=== PATIENT | male | born 1985 | race African-American/Black ===

== ENCOUNTER 2019-03-04 17:12 | Emergency (ER) | payer SELFPAY ==
[2019-03-04 17:17] VITALS: BP 119/76; PULSE 55; TEMP 98; BMI 34.4
--- NOTE | 2019-03-04 17:32 | PDOC ---
History of Present Illness - General Chief Complaint: Back Pain Stated Complaint: BACK PAIN Time Seen by Provider: 03/04/19 17:21 - History of Present Illness Initial Comments: 03/04/19 17:31 33-year-old male without comorbidities presents for lower back pain with posterior lateral left leg radicular symptoms 3 days Past History - Past Medical History Allergies/Adverse Reactions: Allergies Allergy/AdvReac Type Severity Reaction Status Date / Time No Known Allergies Allergy Verified 03/04/19 17:17 Home Medications: Ambulatory Orders Cyclobenzaprine HCl [Flexeril 10 mg] 10 mg PO HS PRN #10 tablet 03/04/19 Methylprednisolone [Medrol Dose Osiel] 4 mg PO ASDIR #21 tablet 03/04/19 COPD: No - Suicide/Smoking/Psychosocial Hx Smoking History: Never smoked Have you smoked in the past 12 months: No Information on smoking cessation initiated: No Hx Alcohol Use: No Drug/Substance Use Hx: No Review of Systems - Review of Systems Constitutional: No: Fever : No: Incontinence Musculoskeletal: Yes: Back Pain *Physical Exam - Vital Signs Last Vital Signs Temp Pulse Resp BP Pulse Ox 98 F 55 L 17 119/76 100 03/04/19 17:15 03/04/19 17:15 03/04/19 17:15 03/04/19 17:15 03/04/19 17:15 - Physical Exam Comments: 03/04/19 17:30 Lumbar spine skin color and temperature are normal. There is decreased range of motion. 5 out of 5 strength in bilateral lower extremities.Straight leg raise test is negative bilaterally. Thighs and calves are soft and nontender. There are no gross sensory motor deficits. Neurovascularly intact. Medical Decision Making - Medical Decision Making 03/04/19 17:30 Lumbar radiculopathy without gross sensory motor deficits Medrol Dosepak muscle relaxers follow-up with spine surgery *DC/Admit/Observation/Transfer Diagnosis at time of Disposition: Lumbar radiculopathy - Discharge Dispostion Disposition: HOME Condition at time of disposition: Stable Decision to Admit order: No - Prescriptions Prescriptions: Cyclobenzaprine HCl [Flexeril 10 mg] 10 mg PO HS PRN #10 tablet PRN Reason: Muscle Spasms Methylprednisolone [Medrol Dose Osiel] 4 mg PO ASDIR #21 tablet - Referrals Referrals: Nathaniel Martinez MD, [facility] [Staff Physician] - - Patient Instructions Printed Discharge Instructions: Lumbar Radiculopathy, DI for Lumbar Radiculopathy Additional Instructions: Please take the steroid pack and muscle relaxer as directed. Return to the emergency room for worsening symptoms. Follow-up with neurosurgery in 1-2 days without fail for further evaluation and treatment options. - Post Discharge Activity
== END 2019-03-04 17:44 | disposition home or self-care (01) ==
LOC: JERFT 17:12
DX: M54.16 Radiculopathy, lumbar region (principal)
CPT/HCPCS: 99281-25

== ENCOUNTER → 2019-04-08 | Emergency (ER) | payer SELFPAY | LOC: JER 23:45 ==

== ENCOUNTER 2019-04-09 12:43 | Emergency (ER) | payer SELFPAY ==
[2019-04-09 12:49] VITALS: BP 96/63; PULSE 64; TEMP 98.2; BMI 34.4
--- NOTE | 2019-04-09 14:50 | PDOC ---
History of Present Illness - General Chief Complaint: Back Pain Stated Complaint: BACK PAIN Time Seen by Provider: 04/09/19 14:49 History Source: Patient Exam Limitations: No Limitations - History of Present Illness Initial Comments: 04/09/19 15:44 Chief complaint: Back pain Patient is a 33-year-old male without any medical problems who injured his back about a month ago while lifting something heavy. He was seen in the ER and put on Flexeril and Medrol Dosepak. Patient states now pain shoots up his back. Patient states he has pain in his left leg, mostly when he goes to walk, no numbness, no saddle anesthesia and no incontinence. Patient has been taking Motrin 800 mg tablets. no fever or shortness of breath. GENERAL/CONSTITUTIONAL: No fever, weakness. dizziness HEAD, EYES, EARS, NOSE AND THROAT: No change in vision. No ear pain or discharge. No sore throat. CARDIOVASCULAR: No chest pain RESPIRATORY: No shortness of breath or cough GASTROINTESTINAL: No pain, nausea, vomiting, diarrhea or constipation GENITOURINARY: No dysuria MUSCULOSKELETAL: No neck or back pain SKIN: No rash NEUROLOGIC: No headache, vertigo, loss of consciousness, or loss of sensation. GENERAL: The patient is awake, alert, and fully oriented, in no acute distress. HEAD: Normal with no signs of trauma. EYES: Pupils equal, round and reactive to light, sclera anicteric, conjunctiva clear. ENT: pharynx: no erythema, no exudate, uvula midline NECK: supple CHEST: clear, nontender, rr ABD: soft, nontender BACK: + tenderness left posterior lower rib area. no spinal tenderness. No signs of injury EXTREMITIES: Normal range of motion, no edema. NEUROLOGICAL: Normal speech, normal gait.Cranial nerves II through XII grossly intact, no gross focal abnormalities SKIN: Warm, Dry Is this a multiple visit Asthma Patient?: No Past History - Past Medical History Allergies/Adverse Reactions: Allergies Allergy/AdvReac Type Severity Reaction Status Date / Time No Known Allergies Allergy Verified 04/09/19 12:48 Home Medications: Ambulatory Orders Methylprednisolone [Medrol Dose Osiel] 4 mg PO ASDIR #21 tablet 03/04/19 Cyclobenzaprine HCl [Flexeril 10 mg] 10 mg PO HS PRN #10 tablet 04/09/19 Meloxicam [Mobic] 15 mg PO DAILY #15 tablet 04/09/19 COPD: No - Immunization History Immunization Up to Date: Yes - Psycho Social/Smoking Cessation Hx Smoking History: Never smoked Have you smoked in the past 12 months: No Information on smoking cessation initiated: No Hx Alcohol Use: No Drug/Substance Use Hx: No *Physical Exam - Vital Signs Last Vital Signs Temp Pulse Resp BP Pulse Ox 98.2 F 64 18 96/63 98 04/09/19 12:45 04/09/19 12:45 04/09/19 12:45 04/09/19 12:45 04/09/19 12:45 Medical Decision Making - Medical Decision Making 04/09/19 15:57 Patient with 3 weeks of back pain after lifting something. Patient was seen in the ER given muscle relaxer and Medrol Dosepak. Patient is taking Motrin 800 without relief now. Pain is not midline on the back, it shifted to the left. Will get an x-ray. X-ray shows scoliosis, no obvious rib fracture or pneumothorax. Patient feels better after Toradol and Valium. Patient has an appointment with the neurosurgeon in April. Patient will have a no for light duty until he sees the neurosurgeon. We'll send patient home on Motrin back and Flexeril for at night Discharge - Discharge Information Problems reviewed: Yes Clinical Impression/Diagnosis: Back pain Qualifiers: Back pain location: back pain in unspecified location Chronicity: unspecified Back pain laterality: left Qualified Code(s): M54.9 - Dorsalgia, unspecified Condition: Stable Disposition: HOME - Admission No - Additional Discharge Information Prescriptions: Cyclobenzaprine HCl [Flexeril 10 mg] 10 mg PO HS PRN #10 tablet PRN Reason: Muscle Spasms Meloxicam [Mobic] 15 mg PO DAILY #15 tablet Prescription Drug Monitoring Program (I-STOP) results: I-STOP not reviewed - Follow up/Referral - Patient Discharge Instructions Patient Printed Discharge Instructions: DI for Low Back Pain Additional Instructions: No heavy lifting or bending Apply ice to the area 20 minutes every 2 hours for the next 2 days Continue taking Mobic daily for pain. If still in pain he can also take flexeril as directed. this may be better only at bedtime as it may make you sleepy. Return to the nearest ER if numbness, weakness, severe pain, problems with urinating or having bowel movements. follow up with neurosurgeon as scheduled - Post Discharge Activity Work/Back to School Note: Back to Work
[2019-04-09] MEDS ORDERED: KETOROLAC TROMETHAMINE 30 MG/1 ML VIAL IM ONE (14:57)
[2019-04-09] MEDS ORDERED: diazePAM 5 MG TABLET PO ONE (14:58)
[2019-04-09] MEDS ORDERED: KETOROLAC TROMETHAMINE 30 MG/1 ML VIAL ONE (15:03)
[2019-04-09] MEDS ORDERED: diazePAM 5 MG TABLET ONE (15:03)
== END 2019-04-09 16:17 | disposition home or self-care (01) ==
LOC: JERFT 12:43
PROC: 3E0233Z Introduction of Anti-inflammatory into Muscle, Percutaneous Approach (ICD-10-PCS; principal; 2019-04-09)
DX: M54.9 Dorsalgia, unspecified (principal); M41.9 Scoliosis, unspecified
CPT/HCPCS: 71046-TC-FY; 71101-TC-LT-FY; 99282-25